=== PATIENT | female | born 2000 | race Caucasian/White ===

== ENCOUNTER → 2021-04-03 03:04 | Outpatient (CLI) | payer OTHER, SELFPAY ==
[2021-04-04 01:27] LABS: SARS-CoV-2 RNA PCR Negative
== END ==
PROVIDERS: PCP Family Medicine Adolescent Medicine; Visit Provider Family Medicine Adolescent Medicine
DX: R68.89 Other general symptoms and signs (principal); Z20.822 Contact with and (suspected) exposure to COVID-19
CPT/HCPCS: C9803; U0003; U0005

== ENCOUNTER 2021-04-04 10:01 | Outpatient (CLI) | payer OTHER, SELFPAY ==
--- NOTE | 2021-04-04 10:14 | ECG_ITS ---
Measurements Intervals Hiller Rate: 69 P: -4 MA: 135 QRS: 33 QRSD: 98 T: 6 QT: 394 QTc: 423 Interpretive Statements SINUS RHYTHM WITH MARKED SINUS ARRHYTHMIA BORDERLINE T WAVE ABNORMALITY- INFERIOR LEADS BORDERLINE ECG Electronically Signed On 04-04-2021 11:00:04 CDT by Cameron Fowler D.O.
== END 2021-04-04 10:02 | disposition home or self-care (01) ==
LOC: ANHCARD 10:07
PROVIDERS: PCP Family Medicine Adolescent Medicine; Visit Provider Obstetrics & Gynecology
DX: R03.0 Elevated blood-pressure reading, without diagnosis of hypertension (principal)
CPT/HCPCS: 93005

== ENCOUNTER 2021-04-15 17:23 | Outpatient (CLI) | payer OTHER, SELFPAY ==
[2021-04-15 18:41] LABS: HIV 1/2 Ab P24 Ag Result Negative (Negative)
[2021-04-16 09:20] LABS: Rapid Plasma Reagin Non-Reactive (NonReactive)
== END 2021-04-15 17:24 | disposition home or self-care (01) ==
PROVIDERS: PCP Family Medicine Adolescent Medicine; Visit Provider Obstetrics & Gynecology
DX: Z34.01 Encounter for supervision of normal first pregnancy, first trimester (principal); Z3A.00 Weeks of gestation of pregnancy not specified
CPT/HCPCS: 36415; 86592; 86703; 86850; G0432

== ENCOUNTER 2021-08-19 09:33 | Outpatient (CLI) | payer MEDICAID, SELFPAY ==
[2021-08-19 11:10] LABS: Hematocrit 36.2 % (37.0-47.0); Hemoglobin 11.9 g/dL (12.0-15.0)
[2021-08-19 11:25] LABS: Glucose 1 Hour PP 50gm Dose 155 mg/dL
[2021-08-19 12:06] LABS: HIV 1/2 Ab P24 Ag Result Negative (Negative)
== END 2021-08-19 09:34 | disposition home or self-care (01) ==
LOC: ANHLAB 09:37
PROVIDERS: PCP Family Medicine Adolescent Medicine; Visit Provider Obstetrics & Gynecology
DX: Z34.92 Encounter for supervision of normal pregnancy, unspecified, second trimester (principal); Z3A.00 Weeks of gestation of pregnancy not specified
CPT/HCPCS: 36415; 82947; 85014; 85018; 86703; G0432

== ENCOUNTER 2021-08-26 14:31 | Outpatient (CLI) | payer MEDICAID, SELFPAY ==
[2021-08-26 15:58] LABS: Hemoglobin A1C 5.9 % (<5.7)
[2021-08-26 20:49] LABS: Total Volume 24 Hour Urine 1600 ml
[2021-08-26 21:11] LABS: Total Protein Urine 24 Hr 96 mg/24hr (28-141); Total Protein Urine Random 6 mg/dL
[2021-08-26 21:12] LABS: Creatinine 24 Hour Urine 1.6 gm/24 (0.8-1.8); Creatinine Urine 104.4 mg/dL
== END 2021-08-26 14:32 | disposition home or self-care (01) ==
LOC: ANHLAB 14:35
PROVIDERS: PCP Family Medicine Adolescent Medicine; Visit Provider Obstetrics & Gynecology
DX: R73.09 Other abnormal glucose (principal)
CPT/HCPCS: 36415; 81050; 82570; 83036; 84156

== ENCOUNTER 2021-09-06 17:25 | Inpatient (IN) | payer MEDICAID, SELFPAY ==
[2021-09-06] VITALS (11 sets, daily range): BP systolic 107–138; BP diastolic 49–78; PULSE 18–104; TEMP 36.6; BMI 58.7
--- NOTE | 2021-09-06 17:49 | LDADM ---
This patient, Lawanda Nuñez, was admitted to Labor/Delivery/Recovery 104 on 09/06/21 at 17:25. Plans for labor, pain management and were discussed with patient. Patient/family oriented to hospital policies and general routines including ID bracelet, bed and alarms, visiting hours, pain management, procedures, bathroom and other care routines, personal items, smoking policy, room service/diet and guest tray routines, security routines, and visiting hours. Patient/Family are encouraged to report perceived risks to care and to ask questions if they do not understand what they are told or what they should do. See OBIX for further documentation.
[2021-09-06 18:40] LABS: Basophils Percent Auto 0.2 % (0.2-1.2); Eosinophils Absolute Auto 0.1 K/mm3 (0-0.3); Eosinophils Percent Auto 0.6 % (0-4.4); Hematocrit 34.8 % (37.0-47.0); Hemoglobin 11.6 g/dL (12.0-15.0); Immature Granulocyte Absolute 0.14 K/mm3 (0.00-0.031); Immature Granulocyte Percent A 1.1 % (0-0.5); Lymphocytes Absolute Auto 2.08 K/mm3 (0.9-3.2); Lymphocytes Percent Auto 16.2 % (18.3-44.2); Mean Corpuscular HGB Conc 33.3 g/dl (32-36); Mean Corpuscular Hemoglobin 27.8 pg (26-34); Mean Corpuscular Volume 83.5 fl (80-100); Mean Platelet Volume 9.5 fl (7.4-10.4); Monocytes Percent Auto 7.9 % (2.6-8.5); Neutrophils Absolute Auto 9.5 K/mm3 (1.3-6.7); Platelet Count Result 330 k/mm3 (150-375); Red Blood Count 4.17 M/mm3 (4.2-5.4); Red Cell Distribution Width 14.4 % (11.5-14.5); White Blood Count 12.8 K/mm3 (4.5-10.0)
[2021-09-06 18:51] LABS: Alanine Aminotransferase 20 U/L (4-35); Albumin Level 3.9 g/dL (3.5-5.1); Alkaline Phosphatase 117 U/L (38-126); Anion Gap 11 mmol/L (8-16); Aspartate Amino Transferase 21 U/L (14-36); Bilirubin,Total 0.3 mg/dL (0.2-1.3); Blood Urea Nitrogen 15 mg/dL (7-17); Carbon Dioxide 19 mmol/L (22-30); Chloride 105 mmol/L (98-107); Estimated CRCL calculation 166 ml/min; Estimated Glomerular Filt Rate > 60; Glucose 108 mg/dL (65-110); Potassium 4.3 mmol/L (3.4-5.0); Sodium 135 mmol/L (137-145); Uric Acid 5.7 mg/dL (2.5-7.5)
[2021-09-06] MEDS: DINOPROSTONE 10 MG VAG INSERT VAGINAL (18:53)
[2021-09-06] MEDS: LABETALOL HCL 100 MG TABLET PO (19:03)
[2021-09-06 19:34] LABS: HIV 1/2 Ab P24 Ag Result Negative (Negative)
[2021-09-07] VITALS (131 sets, daily range): BP systolic 81–163; BP diastolic 38–101; PULSE 62–156; RESP 16–20; TEMP 36.4–37.2; O2SAT 93–100
--- NOTE | 2021-09-07 06:32 | WPDANESEPP ---
Anes - Eval Pre Procedure Procedure: labor epidural Date/Time: 09/07/21 06:32 Surgeon: rayray Preop Diagnosis: pain during labor Pre Op Diagnosis: IOL Patient Data Age: 21 Gender: F Height: 1.55 m Weight: 141 kg Last Vital Signs Temp 36.6 C 09/07/21 04:10 Pulse 91 09/07/21 04:16 Resp 16 09/07/21 04:10 BP 115/51 L 09/07/21 04:16 Allergies Allergy/AdvReac Type Severity Reaction Status Date / Time lavender (Lavandula Allergy Difficulty Verified 09/01/21 09:20 angustifolia) Breathing Home Medications Medication Instructions Recorded Confirmed Type labetalol 100 mg PO Q12H 08/26/21 09/06/21 History prenat.vits,crystal,[id number] 1 tablet PO DAILY 08/26/21 09/06/21 History [ #2] Laboratory Tests 09/06/21 09/06/21 09/06/21 18:31 18:31 18:31 WBC 12.8 K/mm3 H K/mm3 (4.5-10.0) RBC 4.17 M/mm3 L M/mm3 (4.2-5.4) Hgb 11.6 g/dL L g/dL (12.0-15.0) Hct 34.8 % L % (37.0-47.0) MCV 83.5 fl fl (80-100) MCH 27.8 pg pg (26-34) MCHC 33.3 g/dl g/dl (32-36) RDW 14.4 % % (11.5-14.5) Plt Count 330 k/mm3 k/mm3 (150-375) MPV 9.5 fl fl (7.4-10.4) Immature Gran % (Auto) 1.1 % H % (0-0.5) Neut % (Auto) 74.0 % H % (45.5-73.1) Lymph % (Auto) 16.2 % L % (18.3-44.2) Gage % (Auto) 7.9 % % (2.6-8.5) Eos % (Auto) 0.6 % % (0-4.4) Baso % (Auto) 0.2 % % (0.2-1.2) Lymph # (Auto) 2.08 K/mm3 K/mm3 (0.9-3.2) Gage # (Auto) 1.0 K/mm3 H K/mm3 (0.1-0.6) Eos # (Auto) 0.1 K/mm3 K/mm3 (0-0.3) Baso # (Auto) 0.0 K/mm3 K/mm3 (0.0-0.1) Abs Immat Gran (auto) 0.14 K/mm3 H K/mm3 (0.00-0.031) Absolute Neuts (auto) 9.5 K/mm3 H K/mm3 (1.3-6.7) Absolute Nucleated RBC 0.0 K/mm3 K/mm3 (0.0-0.012) Nucleated RBC % 0.0 % % (0.0-0.2) Sodium Potassium Chloride Carbon Dioxide Anion Gap BUN Creatinine Estim Creat Clear Calc Estimated GFR Glucose Uric Acid 5.7 mg/dL mg/dL (2.5-7.5) Calcium Total Bilirubin AST ALT Alkaline Phosphatase Total Protein Albumin RPR HIV 1&2 Ab/P24 Ag 4thGn Negative (Negative) Blood Type Antibody Screen 09/06/21 09/06/21 09/06/21 18:31 18:31 18:31 WBC RBC Hgb Hct MCV MCH MCHC RDW Plt Count MPV Immature Gran % (Auto) Neut % (Auto) Lymph % (Auto) Gage % (Auto) Eos % (Auto) Baso % (Auto) Lymph # (Auto) Gage # (Auto) Eos # (Auto) Baso # (Auto) Abs Immat Gran (auto) Absolute Neuts (auto) Absolute Nucleated RBC Nucleated RBC % Sodium 135 mmol/L L mmol/L (137-145) Potassium 4.3 mmol/L mmol/L (3.4-5.0) Chloride 105 mmol/L mmol/L (98-107) Carbon Dioxide 19 mmol/L L mmol/L (22-30) Anion Gap 11 mmol/L mmol/L (8-16) BUN 15 mg/dL mg/dL (7-17) Creatinine 0.60 mg/dL L mg/dL (0.7-1.0) Estim Creat Clear Calc 166 ml/min ml/min Estimated GFR > 60 (59 - ) Glucose 108 mg/dL mg/dL (65-110) Uric Acid Calcium 10.0 mg/dL mg/dL (8.4-10.2) Total Bilirubin 0.3 mg/dL mg/dL (0.2-1.3) AST 21 U/L U/L (14-36) ALT 20 U/L U/L (4-35) Alkaline Phosphatase 117 U/L U/L (38-126) Total Protein 7.0 g/dL g/dL (6.3-8
--- NOTE | 2021-09-07 08:00 | PM.IMHP ---
H&P: HPI History of Present Illness Date/Time: 09/07/21 08:00 Lawanda is a 21yo @ 38.3wks who was admitted for induction of labor due to chronic hypertension. She reports good movement. No VB or LOF. Feeling some contractions. She had cervidil overnight. No REGALADO, vision changes, CP or SOB. Her is complicated by: - Morbid obesity; BMI 58 - Chronic hypertension on labetalol 100mg BID - Asthma on budesonide and albuterol - Anxiety on zoloft - Anemia on iron - Varicella, rubella, CMV, parvo non-immune - Elevated glucola; a1c 5.9, 3hr OGTT not performed Chief Complaint: induction of labor Review of Systems Review of Systems: All systems reviewed & are unremarkable except as noted in HPI and below (HPI) PMFSH Past Medical History Medical History Anxiety IUP (intrauterine ), incidental Morbid obesity with BMI of 50.0-59.9, adult Surgical History Surgical History History of tonsillectomy Family History Family History Mother A-fib Hypertension Bipolar 1 disorder Father Hypertension Grandparent A-fib Leukemia Lung cancer Chronic obstructive pulmonary disease Hypertension Grandparent Diabetes mellitus Bipolar 1 disorder Social History Social History Smoking status: Never smoker Alcohol intake: never Substance use: former Last use: QUIT IN JANUARY 2021 Gender identity (if verbalized by the patient): Female Sexual Orientation (if Verbalized by the Patient): Straight or Heterosexual Spiritual care concerns: No Meds Home Medications and Allergies Home Medications Medication Instructions Recorded Confirmed Type labetalol 100 mg PO Q12H 08/26/21 09/06/21 History prenat.vits,crystal,[id number] 1 tablet PO DAILY 08/26/21 09/06/21 History [ #2] Allergies Allergy/AdvReac Type Severity Reaction Status Date / Time lavender (Lavandula Allergy Difficulty Verified 09/01/21 09:20 angustifolia) Breathing Vital Signs Vital Signs - 24 hr 09/06/21 18:30 09/06/21 18:55 09/06/21 19:01 Temperature 98 F Pulse Rate 18 L 93 95 Respiratory Rate Blood Pressure 133/78 129/65 09/06/21 19:03 09/06/21 19:16 09/06/21 19:31 Temperature Pulse Rate 96 91 92 Respiratory Rate Blood Pressure 124/62 137/67 09/06/21 19:46 09/06/21 20:01 09/06/21 20:18 Temperature Pulse Rate 96 95 99 Respiratory Rate Blood Pressure 138/61 137/65 107/49 L 09/06/21 20:31 09/06/21 21:19 09/07/21 00:11 Temperature Pulse Rate 96 104 H 89 Respiratory Rate Blood Pressure 122/71 113/76 138/61 09/07/21 00:16 09/07/21 00:31 09/07/21 00:46 Temperature Pulse Rate 86 91 90 Respiratory Rate Blood Pressure 131/59 L 123/54 L 114/70 09/07/21 04:08 09/07/21 04:10 09/07/21 04:16 Temperature 98 F Pulse Rate 88 91 Respiratory Rate 16 Blood Pressure 118/59 L 115/51 L 09/07/21 07:00 09/07/21 07:10 09/07/21 07:16 Temperature 97.9 F Pulse Rate 89 84 Respiratory Rate Blood Pressure 137/78 123/69 09/07/21 07:31 09/07/21 07:46 Temperature Pulse Rate 82 76 Respiratory Rate Blood Pressure 134/70 122/70 Exam Const: General: cooperative, comfortable and no acute distress Nutritional Appearance: obese Resp: Effort & Inspection: normal respiratory effort Cardio: Rate: regular rate GI: Inspection: Pannus present GI Palp: No abdominal tenderness and Yes Soft to palpation : Other: FHT's: 150's/ mod robert/ + accels/ no decels - cat 1 TOCO: irregular contractions Cervix: 1/thick/high, anterior, soft Membranes: intact Presentation: cephalic Skin: General skin exam: normal color Neuro: General: patient oriented x3 Extrem: General: normal to inspection Psych: Appearance: grossly tee
--- NOTE | 2021-09-07 08:22 | WPDHPUPDATE1 ---
History and Physical Update Update Date/Time: 09/07/21 08:22 History and Physical has been reviewed, including an updated exam of the patient. There are NO changes in the patient's condition. Risks, benefits, and alternatives have been discussed and questions answered. Patient agrees to proceed with procedure.
[2021-09-07] MEDS: LABETALOL HCL 100 MG TABLET PO ×2 (08:37→21:52)
[2021-09-07] MEDS: miSOPROStol 25 MCG TABLET VAGINAL ×2 (08:37→12:42)
[2021-09-07 12:00] LABS: Rapid Plasma Reagin Non-Reactive (NonReactive)
[2021-09-07] MEDS: OXYTOCIN 30 UNITS/NS 500 ML 30 UNITS/500 ML BAG 6 UNITS IV CONT (17:00)
[2021-09-07] MEDS: LACTATED RINGERS 1,000 ML 125 ML IV CONT ×2 (17:10→23:50)
--- NOTE | 2021-09-07 17:33 | PM.OBPNLAB ---
Pain Control Date/time seen: 09/07/21 17:21 Pain control: tolerating well (but desires epidural soon) Pelvic Exam Dilation (cm): 2 Effacement (%): 50 station: -2 Amniotic membrane status: Ruptured (AROM, clear 1730) Contractions Monitor mode: Internal Contraction frequency: 2 Contraction pattern: Regular Contraction intensity: Moderate Status status: Category l Assessment and Plan Pitocin rate (mU/min): 6 Assessment: induction ongoing Plan: continuous present management Comments: - AROM performed this exam - Pitocin started; s/p cervidil and misoprostol x2 - IUPC placed for better monitoring due to morbid obesity
[2021-09-07 17:55] LABS: Amphetamine Screen Urine Negative (Negative); Barbiturate Screen Urine Negative (Negative); Benzodiazepines Screen Urine Negative (Negative); Cannabinoid Screen Urine Negative (Negative); Cocaine Screen Urine Negative (Negative); Methadone Screen Urine Negative (Negative); Opiate Screen Urine Negative (Negative); Phencyclidine Screen Urine Negative (Negative)
[2021-09-07] MEDS: ONDANSETRON INJ 4 MG/2 ML VIAL IV PUSH (20:58)
[2021-09-08] VITALS (244 sets, daily range): BP systolic 91–173; BP diastolic 39–92; PULSE 59–147; RESP 16; TEMP 36.4–37.7; O2SAT 94–100
--- NOTE | 2021-09-08 06:56 | PM.OBPNLAB ---
Pain Control Date/time seen: 09/08/21 06:56 Pain control: epidural Pelvic Exam Dilation (cm): 5 Effacement (%): 80 station: -2 Amniotic membrane status: Ruptured (AROM, clear 1730) Contractions Monitor mode: Internal Contraction frequency: 2 Contraction pattern: Regular (having some doubling/tripling randomly) Contraction intensity: Moderate Status status: Category ll Comments: - Occasional late decelerations but responds to resuscitation; good variability with accelerations noted - FSE placed on this exam Assessment and Plan Pitocin rate (mU/min): 8 Assessment: induction ongoing Plan: continuous present management Comments: - Prolonged latent phase; ruptured on pitocin for 13.5 hours - Discussed that at 15-18 hours ruptured on pitocin and not in active labor, would recommend c/s - head asynclitic; continue position changes and peanut ball
[2021-09-08] MEDS: LACTATED RINGERS 1,000 ML 125 ML IV CONT (09:35)
[2021-09-08] MEDS: AMPICILLIN 2 GM/NS 100 ML 2 GM/100 ML BAG IVPB (11:23)
--- NOTE | 2021-09-08 12:15 | PM.OBPNLAB ---
Pain Control Date/time seen: 09/08/21 12:15 Pain control: epidural Pelvic Exam Dilation (cm): 8 Effacement (%): 100 station: -1 Amniotic membrane status: Ruptured (AROM, clear 1730) Contractions Monitor mode: Internal Contraction frequency: 2 Contraction pattern: Regular Contraction intensity: Moderate Status status: Category l Assessment and Plan Pitocin rate (mU/min): 14 Assessment: active labor Comments: - active labor since 929; making good cervical change - ampicillin started for prolonged rupture of membranes
[2021-09-08] MEDS: LIDOCAINE HCL 1% PF 30 ML VIAL (14:53)
[2021-09-08] MEDS: miSOPROStol 200 MCG TABLET 800 MCG (15:10)
[2021-09-08] MEDS: OXYTOCIN 30 UNITS/NS 500 ML 30 UNITS/500 ML BAG 125 UNITS IV CONT (15:17)
--- NOTE | 2021-09-08 15:23 | P.PCNOB_ITS ---
OB - Delivery Note Procedure Delivery date: 09/08/21 events: Labor Induction (for chronic hypertension) Intrapartal events: Prolonged Labor > 20 hours and Deceleration Induction method: per misoprostol protocol and per cervidil protocol Delivery augmentation: rupture of membranes and pitocin Delivery monitor: internal FHT and internal uterine Route of delivery: Laceration Description: Perineal - 2nd Degree Delivery repair: vicryl Specimen: Yes (placenta) Quantitative Blood Loss (ml): 350 Anesthesia type: Epidural Disposition: floor Baby Date of : 09/08/21 Time of : 14:45 Weeks of gestation at delivery: 38 (.4) Infant gender: Male Weight (pounds): 6 Weight (ounces): 11 presentation: vertex position: Right Occiput Transverse Placenta delivery description: Expressed cord vessel description: 3 Vessels score one minute: 3 score five minutes: 8 score ten minutes: 9 Narrative: Lawanda progressed to complete dilation with strong desire to push. She pushed with good maternal effort for approximately 1 hour. She delivered the head over intact perineum. She easily delivered the 's shoulder and body without complications. The was immediately placed skin to skin. The i nfant was noted to have decreased tone and no cry therefore the umbilical cord was clamped and cut. The pediatric nurse took the infant over to the warmer and with stimulation and PPV a good cry was heard. A segment of the cord was collected for cord gases. The remaining cord blood was collected for typing. With Pitocin running and gentle downward traction on the cord, the placenta delivered without complications. The patient was examined and a second-degree perineal laceration was noted. Bimanual massage was performed and a small amount of clots were removed. The second-degree laceration was repaired in the normal fashion using 2-0 Vicryl. An additional bimanual massage was performed and uterus was noted to be firm with minimal bleeding. Due to the patient's prolonged induction, misoprostol 800 mcg was placed rectally to prevent bleeding. Sponge, lap, instrument, and needle counts were correct at the end of the procedure. [facility] Delivery Billing Delivery Delivery: Delivery Charge
[2021-09-08] MEDS: BENZOCAINE 20% AER SPR (*SP) 56 GM CAN 1 SPRAY TOPICAL (16:04)
[2021-09-08] MEDS: IBUPROFEN 600 MG TABLET PO ×2 (16:04→22:51)
[2021-09-08] MEDS: WITCH HAZEL 40 PADS 1 PAD TOPICAL (16:04)
[2021-09-08] MEDS: LABETALOL HCL 100 MG TABLET PO (16:50)
[2021-09-08] MEDS: HYDROcodone/acetaminophen (*CRX) 5-325 MG TABLET 1 TAB PO (16:55)
[2021-09-08] MEDS: ACETAMINOPHEN 325 MG TABLET 650 MG PO (19:50)
[2021-09-09] VITALS (7 sets, daily range): BP systolic 121–138; BP diastolic 51–66; PULSE 84–96; RESP 16–18; TEMP 36.3–37; O2SAT 98–100
[2021-09-09] MEDS: LABETALOL HCL 100 MG TABLET PO ×2 (03:17→17:01)
[2021-09-09] MEDS: ACETAMINOPHEN 325 MG TABLET 650 MG PO ×4 (03:17→19:30)
[2021-09-09] MEDS: IBUPROFEN 600 MG TABLET PO ×3 (05:40→19:29)
[2021-09-09] MEDS: TETANUS,DIPHTHERIA,AC PERTUSSIS ADULT (0.5 ML) BOOSTRIX IM (05:40)
[2021-09-09 05:43] LABS: Hematocrit 30.3 % (37.0-47.0)
[2021-09-09] MEDS: DOCUSATE SODIUM 100 MG CAPSULE PO (07:50)
--- NOTE | 2021-09-09 08:00 | PC.NURSE ---
PT introductions made and plan of care discussed per post , pain management, breast feeding, pumping, supplementing, daily care activities and PIH symptoms. PT received such instructions per one to one discussion, mom baby care guide, demonstrations this shift and no barriers to learning identified. PT sole recipient of such instructions and pt verbalized understanding of such care.
--- NOTE | 2021-09-09 12:13 | P.PNOB_ITS ---
OB - PN: Subj Subjective Date/time seen: 09/09/21 12:13 Narrative: PPD#1 Lawanda reports doing well today. Her bleeding is nozzle and sleeve worker. Her pain is controlled. She is tolerating regular diet, voiding, passing gas, and ambulating without issues. She is breast feeding. She would like her son circumcised. OB - PN: Obj Data Labs CBC & Chem 7: 09/09/21 03:15 09/06/21 18:31 Labs: Laboratory Results - last 24 hr 09/09/21 03:15 Hgb 10.0 L Hct 30.3 L OB - PN A/P Assessment and Plan (1) Normal vaginal delivery of first : Code(s): O80 - Encounter for full-term uncomplicated delivery Status: Acute (2) Chronic hypertension affecting : Code(s): O10.919 - Unspecified pre-existing hypertension complicating , unspecified trimester Status: Acute Plan day: 1 Plan: routine care and discharge home (tomorrow) Comments: - Circumcision performed without issue - Pelvic rest; take meds as prescribed - ER return precautions: fever, n/v/abd pain, bleeding, HTN Time Spent With Patient Time: Total time spent is greater than 50% in coordination of care (as documented) at patient's floor/unit and/or counseling patient: Review of Systems Constitutional: Constitutional: Denies chills, Denies fever(s) and Denies headache(s) Eyes: Eyes: Denies change in vision ENT: Denies dizziness and Denies headache(s) Cardiovascular: Cardiovascular: Denies chest pain, Denies palpitations and Denies dyspnea Respiratory: Respiratory: Denies cough and Denies dyspnea Gastrointestinal: Gastrointestinal: Denies nausea and Denies vomiting Neurologic: Denies dizziness and Denies headache(s) Endocrine: Endocrine: Denies palpitations Exam Const: General: cooperative, comfortable and no acute distress Orientation/consciousness: patient oriented x3 Resp: Effort & Inspection: normal respiratory effort Auscultation: clear to auscultation bilaterally Cardio: Rate: regular rate GI: Inspection: non-distended GI Palp: No abdominal tenderness and Yes Soft to palpation Auscultation: normal bowel sounds : Other: fundus firm Skin: General skin exam: normal color Neuro: General: patient oriented x3 Extrem: General: normal to inspection Psych: Appearance: grossly normal Affect: normal affect Attitude: cooperative
--- NOTE | 2021-09-09 16:06 | PC.NURSE ---
0805 - Consulted with patient to discuss desire of how she would like to feed her . Reviewed feeding cues, frequencies, duration of feedings, feeding elimination flow sheet, and signs of adequate intake. is in the nursery for testing. Reviewed positioning/alignment, holding breast and asymmetrical latch on. Reviewed signs of a correct latch, effective nursing and suck swallow ratio. Nipple care reviewed. Referred to the mom and baby guide for a reference as well. Parents voiced understanding to call when infant is in the room, skin to skin and feeding cues are seen. Reviewed watching for feeding cues for infant feeding 8-12 times in 24 hours. will need to breastfeed approximately every two - three hours from start of last feeding. Referred to the handouts, mom and baby guide for additional resources. 0845 - RN assisted infant to attempt with and without the nipple shield in football and cross cradle positions. Both breast were attempted with no latch. Infant has recessed chin and a tight lower frenulum. Learning Operations Specialist is aware and mom is attempting to breast, supplementing and pumping. Mother voiced understanding of learning. Reported to primary RN.
--- NOTE | 2021-09-09 16:24 | PC.NURSE ---
0920 - Father performed good hand hygiene and placed colostrum into infants mouth.
--- NOTE | 2021-09-09 18:56 | PC.NURSE ---
Patient viewed the discharge video Mother & Baby Care, The First Two Weeks . Patient was given the opportunity and encouraged to ask questions. Patient verbalized understanding of information shared and has been given the mother/baby guide for home reference.
[2021-09-10] MEDS: ACETAMINOPHEN 325 MG TABLET 650 MG PO ×2 (01:14→08:58)
[2021-09-10] MEDS: IBUPROFEN 600 MG TABLET PO ×2 (01:15→08:58)
[2021-09-10] MEDS: LANOLIN (LANSINOH) 7.5 GM CREAM 2 APPLIC (05:48)
[2021-09-10 05:52] VITALS: PULSE 98
[2021-09-10] MEDS: LABETALOL HCL 100 MG TABLET PO (05:52)
[2021-09-10 07:30] VITALS: BP 112/65; PULSE 88; RESP 18; TEMP 36.3; O2SAT 100
--- NOTE | 2021-09-10 08:24 | PC.NURSE ---
0730 - Consulted with parents. Father states baby was more awake and attempting to the breast more last night. Parents are supplementing their infant with formula and pumping. Parents encouraged to call for assistance for the next feeding. Mom is sleepy and RN will return
[2021-09-10] MEDS: DOCUSATE SODIUM 100 MG CAPSULE PO (08:58)
[2021-09-10] MEDS: MEASLES,MUMPS,RUBELLA VACCINE 0.5 ML VIAL SUB-Q (12:53)
[2021-09-11 10:45] VITALS: BP 130/61; PULSE 93; RESP 20; TEMP 37.1; O2SAT 100
--- NOTE | 2021-09-15 11:03 | PM.OBDSVD ---
DS: Admitting Diagnosis Discharge Date 09/10/21 Admitting Diagnosis induction of labor chronic hypertension DS: Discharge Diagnosis Discharge Diagnosis (1) Chronic hypertension affecting : Code(s): O10.919 - Unspecified pre-existing hypertension complicating , unspecified trimester Status: Acute (2) Normal vaginal delivery of first : Code(s): O80 - Encounter for full-term uncomplicated delivery Status: Acute OB - DS: Summary OB Procedures : NST, PIH Mgmt and Ultrasound OB Procedures Intrapartum: Spontaneous Vag Delivery OB Procedures: : None Peripartum Data Delivery Method: Natural Vaginal Laceration Description: Perineal - 2nd Degree complications: none 1: Gender: Male Disposition of : home Status at Discharge Functional status at discharge: independent ambulation Overall status at discharge: patient is back to baseline Time Spent with Patient Time attestation: Total time spent providing and/or coordinating discharge services: Time spent: Less than 30 minutes Exam Const: General: cooperative, comfortable and no acute distress Nutritional Appearance: obese morbidly obese Orientation/consciousness: patient oriented x3 Resp: Effort & Inspection: normal respiratory effort Auscultation: clear to auscultation bilaterally Cardio: Rate: regular rate GI: Inspection: non-distended GI Palp: No abdominal tenderness and Yes Soft to palpation Auscultation: normal bowel sounds : Other: fundus firm Skin: General skin exam: normal color Neuro: General: patient oriented x3 Extrem: General: normal to inspection Psych: Appearance: grossly normal Affect: normal affect Attitude: cooperative DS: Data Data Completed and Pending Completed studies during hospitalization: Pending at discharge 09/08/21 15:34 Surgical [PTH] Routine Discharge Plan Discharge Attending physician on discharge: Tova Landin Discharging Clinician: Tova Landin Anticipated Discharge Date/Time: 09/10/21 10:00 Patient Disposition: Home, Self-Care Activity: may shower, may drive after 2 weeks and pelvic rest Diet: regular Discharge Instructions: Education: Mom and Baby Guide Given to: Mother Follow-Up: Call your delivering provider's office for an appointment to be seen in: 2 Weeks Mom and baby should come to the [facility] for the follow-up appointment. Appointment Date/Time: September 11, 2021 at 11:00 am What to expect at your follow-up visit: Blood Pressure Check Physical Assessment Call [phone] if you are unable to keep your appointment time. BREAST CARE: * Wear a snug supportive bra. * For engorgement discomfort: Breast Feeding: * Apply warm moist washcloths * Express milk as needed to relieve engorgement * Wear loose clothing Bottle Feeding: * May apply ice packs * For sore nipples: * Identify correct latch-on * Apply warm moist washcloths before and after nursing * Air dry nipples after nursing * May apply Lansinoh cream to nipples EPISIOTOMY/PERINEAL CARE: * Until bleeding stops, use your xuan bottle after urinating * Change your pad frequently throughout the day * You may take sitz baths several times a day (fill your bathtub with warm water and soak for 20 minutes.) Do NOT bathe in the water * No tub baths until seen by your physician - You may shower ACTIVITY: * Rest as much as possible. * Do not exercise or lift anything heavier than your baby (such as laundry or other children.) * Avoid stairs or driving as much as possible. * Do not put anything into the vagina. No douching, tampons, or sexual activity until seen by physician. NOTIFY PHYSICIAN IF YOU HAVE ANY QUESTIONS OR IF ANY OF THE FOLLOWING SYMPTOMS OCCUR: * If your episiotomy or incision becomes r
== END 2021-09-10 14:05 | disposition home or self-care (01) | DRG 560 ==
LOC: ANHLDR 17:28 → ANHOB2 09-08 17:49
PROVIDERS: Admitting Provider Obstetrics & Gynecology; PCP Family Medicine Adolescent Medicine; Visit Provider Obstetrics & Gynecology
DX: O99.214 Obesity complicating childbirth (principal); O10.92 Unspecified pre-existing hypertension complicating childbirth; E66.01 Morbid (severe) obesity due to excess calories; O99.344 Other mental disorders complicating childbirth; O99.02 Anemia complicating childbirth; D64.9 Anemia, unspecified; O76 Abnormality in fetal heart rate and rhythm complicating labor and delivery; O70.1 Second degree perineal laceration during delivery; O99.52 Diseases of the respiratory system complicating childbirth; J45.909 Unspecified asthma, uncomplicated; F41.9 Anxiety disorder, unspecified; Z37.0 Single live birth; Z3A.38 38 weeks gestation of pregnancy; Z23 Encounter for immunization
CPT/HCPCS: 36415; 80053; 80307; 84550; 85014; 85018; 85025; 86592; 86703; 86850; 86900; 86901; 88307; 90471; 90653; 90710; 90715; A9270; G0008; G0432; J0290; J2405; J2590; J2795; J7120

== ENCOUNTER 2021-09-11 13:44 | Outpatient (CLI) | payer MEDICAID, SELFPAY ==
--- NOTE | ~2021-09-11 | US_ITS ---
EXAMINATION: US venous doppler [facility] EXAM DATE: 09/11/2021 14:36 INDICATION: Left leg swelling. TECHNIQUE: Multiple grayscale, color flow and Doppler images of the left lower extremity deep venous system were obtained and reviewed. There is no prior study for comparison. FINDINGS: The left common femoral, femoral and profunda veins demonstrate normal color flow, respirat ory variation, augmentation and compressibility. Compressibility, color flow confirmed within the le ft popliteal, posterior tibial, peroneal, and greater saphenous veins. IMPRESSION: 1. No left lower extremity deep venous thrombosis. Reviewed, dictated and finalized at location B. DER SETTER
== END 2021-09-11 13:45 | disposition home or self-care (01) ==
PROVIDERS: PCP Family Medicine Adolescent Medicine; Visit Provider Obstetrics & Gynecology
DX: M79.89 Other specified soft tissue disorders (principal)
CPT/HCPCS: 93971